=== PATIENT | male | born 1985 | race African-American/Black ===

== ENCOUNTER 2019-03-25 11:08 | Emergency (ER) | payer OTHER ==
[~2019-03-25] VITALS: Ht 172.7 cm; Wt 90.9 kg
[2019-03-25 11:21] VITALS: BP 159/99
[2019-03-25] MEDS ORDERED: NORCO 325 MG-51 TAB PO (11:47)
[2019-03-25] MEDS ORDERED: AMOXICILLIN 50500 MG PO (11:47)
[2019-03-25 12:05] VITALS: PULSE 70; TEMP 98.7
== END 2019-03-25 12:05 | disposition home or self-care (01) ==
LOC: COL.ER 11:08 → EDBD 11:09 → COL.ER 11:09
DX: K02.9 Dental caries, unspecified (principal); K04.7 Periapical abscess without sinus